=== PATIENT | male | born 1970 | race Caucasian/White ===

== ENCOUNTER 2020-06-07 15:16 | Emergency (ER) | payer OTHER ==
[2020-06-07 15:39] VITALS: BP 113/71; PULSE 74; BMI 30.5
== END 2020-06-07 17:07 | disposition home or self-care (01) ==
LOC: JER 15:16 → JERFT 15:16
DX: M25.531 Pain in right wrist (principal); M25.512 Pain in left shoulder
CPT/HCPCS: 99282-25

== ENCOUNTER 2021-09-03 05:09 | Emergency (ER) | payer OTHER ==
[2021-09-03 05:26] VITALS: BP 122/77; PULSE 68; TEMP 98.2; BMI 29.8
[2021-09-03] MEDS ORDERED: ACETAMINOPHEN 500 MG TABLET (FP) PO ONE (05:27)
[2021-09-03] MEDS ORDERED: ACETAMINOPHEN 325 MG TABLET (FP) ONE (05:35)
== END 2021-09-03 06:14 | disposition home or self-care (01) ==
LOC: JER 05:09
DX: S46.911A Strain of unspecified muscle, fascia and tendon at shoulder and upper arm level, right arm, initial encounter (principal); M54.50 Low back pain, unspecified; X50.0XXA Overexertion from strenuous movement or load, initial encounter
CPT/HCPCS: 99283-25